=== PATIENT | female | born 1935 | race Caucasian/White ===

== ENCOUNTER 2022-06-17 11:34 | Outpatient (CLI) | payer MEDICARE, BC, SELFPAY ==
[2022-06-17 13:00] LABS: Cholesterol* 174 mg/dL (90-199); HDL Cholesterol* 40 mg/dL (>=50); LDL Cholesterol Calculated 88 mg/dL (<100); Triglycerides* 232 mg/dL (40-149)
== END 2022-06-17 11:35 | disposition home or self-care (01) ==
LOC: NFLDREF 11:34
PROVIDERS: PCP Internal Medicine; Visit Provider Internal Medicine
DX: I10 Essential (primary) hypertension (principal); E78.5 Hyperlipidemia, unspecified; E87.1 Hypo-osmolality and hyponatremia
CPT/HCPCS: 80061

== ENCOUNTER 2022-08-02 13:36 | Outpatient (CLI) | payer MEDICARE, BC, SELFPAY ==
[2022-08-02 15:59] LABS: Chloride* 95 mmol/L (96-114); Potassium* 4.8 mmol/L (3.6-5.1); Sodium* 135 mmol/L (135-149)
[2022-08-02 16:02] LABS: Blood Urea Nitrogen* 31 mg/dL (7-30); Calcium* 10.1 mg/dL (8.4-10.6); Carbon Dioxide* 26 mmol/L (20-32); Creatinine* 0.8 mg/dL (0.5-1.5); Estimated Glomerular Filt Rate 72 ml/min; Glucose* 112 mg/dL (60-115)
== END 2022-08-02 13:37 | disposition home or self-care (01) ==
LOC: NFLDREF 13:36
PROVIDERS: PCP Internal Medicine; Visit Provider Internal Medicine
DX: Z00.00 Encounter for general adult medical examination without abnormal findings (principal); I10 Essential (primary) hypertension
CPT/HCPCS: 80048

== ENCOUNTER 2022-08-25 10:34 | Outpatient (CLI) | payer MEDICARE, BC, SELFPAY ==
--- OUTSIDE RECORDS SUMMARY | 2022-08-25 10:38 | XMS_ITS | Clinical Summary ---
:1935 Author Organization [employer] [facility] [place] [address] Care Team Providers Name Role Phone Dhaval Lopez DPM Unavailable Wander Ashton MD Unavailable Dragan Colbert MD Unavailable Wander Ashton MD Unavailable Dhaval Lopez DPM Unavailable Marcela Benoit MD Primary Care Provider Allergies Active Allergy Reactions Severity Noted Date Comments Droperidol *Unknown 05/29/2019 Medications Medication Sig Dispensed Refills Start End Date Status Date calcium Take 1 tablet by 0 Act darren carbonate-vitamin D3, mouth once daily. 500 mg-400 units, (OYSTER SHELL CALCIUM-VIT D3) tablet fish oil-omega-3 fatty Take 1 capsule by 0 Active acids (FISH OIL) mouth once daily. 1,200-360 mg cap ascorbic acid, vitamin Take 500 mg by 0 Active C, (VITAMIN C) 500 mg mouth once daily. tablet polyethylene glycoL Take 17 g by 0 Active (MIRALAX) 17 gram/dose mouth. 7 powderIndications: Chronic constipation acetaminophen (TYLENOL Take 2 tablets by 0 Active EXTRA STRGTH) 500 mg mouth every 4 9 tablet hours if needed. Max acetaminophen dose: 4000mg in 24 hrs. loratadine (CLARITIN) 10 Take 1 tablet by 0 10/08/20 1 Active mg tabletIndications: mouth once daily. 9 Chronic serous otitis media of right ear B-D 3CC LUER-HEBERT SYR 0 Active 25GX5/8 3 mL 25 x 5/8 0 lisinopriL (PRINIVIL; TAKE 1 TABLET BY 90 tablet 1 Active ZESTRIL) 20 mg MOUTH ONCE DAILY. 1 tabletIndications: Hypertension aspirin (ECOTRIN) 81 mg Take 1 Tablet (81 0 04/09/20 2 Active enteric coated mg) by mouth once 1 tabletIndications: daily with a meal. Arterial ischemic stroke, vertebrobasilar, thalamic, acute, right (HC) clopidogreL (PLAVIX) 75 Take 1 Tablet (75 90 Tablet 3 04/09/20 2 Active mg tabletIndications: mg) by mouth every 1 Arterial ischemic morning. stroke, vertebrobasilar, thalamic, acute, right (HC) pravastatin (PRAVACHOL) TAKE ONE TABLET BY 60 Tablet 0 02 Active 20 mg tabletIndications: MOUTH AT BEDTIME 1 Mixed hyperlipidemia omeprazole (PRILOSEC) 20 TAKE 1 CAPSULE BY 90 Capsule 2 Active mg Delayed-Release MOUTH ONCE DAILY 2 capsuleIndications: BEFORE A MEAL Gastroesophageal reflux disease without esophagitis, Acute gastric ulcer with hemorrhage cyanocobalamin (VITAMIN INJECT 1 ML 3 mL 2 Active B12) 1,000 mcg/mL INTRAMUSCULAR 2 injectionIndications: EVERY 4 WEEKS. Vitamin B12 deficiency amLODIPine (NORVASC) 5 TAKE ONE TABLET BY 90 Tablet 2 12/01/19 2 Active mg tabletIndications: MOUTH ONCE DAILY 2 HTN (hypertension) hydroCHLOROthiazide TAKE 1 TABLET BY 30 Tablet 0 Active (HCTZ) 25 mg MOUTH ONCE DAILY. 2 tabletIndications: Hypertension Active Problems Problem Noted Date Nonrheumatic mitral valve regurgitation 04/09/2021 Arterial ischemic stroke, vertebrobasilar, thalamic, a cute, right 11/16/2020 Melanoma of left upper arm 06/11/2019 Melanoma in situ of face 06/11/2019 Squamous cell carcinoma 05/29/2019 Overview: Scalp lesion removed 02/2018 Primary osteoarthritis of right knee 02/22/2017 Constipation 04/01/2016 Post herpetic neuralgia 02/12/2016 Primary osteoarthritis of left knee 02/12/2016 Gastric ulcer, acute 06/19/2015 Overview: EGD 05/2015 gastric ulcer, repeat EGD in 4 months EGD 10/2015 healed ulcer Lumbar spinal stenosis 03/20/2015 DDD (degenerative disc disease), lumbar 10/25/2014 Sacroiliitis 10/25/2014 Vitamin B12 deficiency 06/21/2013 GERD (gastroesophageal reflux disease) 03/16/2013 Senile osteoporosis 01/13/2012 Paresthesias 04/07/2010 Carpal tunnel syndrome 02/12/2010 Personal history of colonic polyps 01/23/2010 Overview: Colonoscopy 01/2010 diverticulosis repeat in 5 years Colonoscopy 05/2015 diverticulosis, no fo llow up needed Cervical Radiculopathy 01/16/2010 Degeneration of cervical intervertebral disc 0 Iron deficiency anemia 01/02/2010 Unspecified transient cerebral ischemia 06/21/2000 Mixed hyperlipidemia Unspecified menopausal and postmenopausal disorder Essential hypertension Diverticulitis of colon (without mention of hemorrhage ) Obesity, Class II, BMI 35-39.9, with comorbidity Resolved Problems Problem Noted Date Resolved Date Low back pain radiating to left leg 10/23/200902/21 Overview: 2009: MRI: DDD, and Multilevel central c anal stenosis, greatest at L3-L4 where moderate canal stenosis. DENISSE: October 2009: L 4-5 Transforaminal , great improvement in left leg pain/symptoms. DENISSE: April 2010: left L4-5 Transforaminal . DENISSE: March 2011: left L4-5 Transforaminal. Osteopenia 01/01/2009 01/13/2012 Encounters Date Type Specialty Care Team Description 05/27/2022 Refill Pedro Luis Orellana MD Re fill Request (Hydrochlorothi azide, Clopidogrel) from Last 3 Months Immunizations Name Administration Dates Next Due COVID-19 vaccine (AskU 01/20/2021, 12/30/2020 30mcg/0.3mL) PFMDV Influenza, High-dose Inactivated 09/05/2019, 09/01/2016, , 08/28/2014 Influenza, High-dose Quadrivalent 09/10/2020 Inactivated Influenza, IIV3 (Age >=3 years) 08/13/2013, 08/22/2012, 07/22, 08/07/2010, 08/21/2009, 09/24/2008, 09/27/2007 Influenza, Inactivated IIV3 (Age 65+ 09/22/2018, 09/21/2017 Years) Preserv Free Pneumococcal Poly,23-Valent 09/24/2008 (Pneumovax) Pneumococcal conj 13-Valent (Prevnar 03/11/2015 13) Td (Age >=7 Years) 04/24/1998 Td, Preservative Free (age >= 7 02/13/2008 Years) Tdap 06/20/2012 Zoster (Shingrix-RZV, recombinant) 03/23/2019, 02/21/2019, 0 12/15/2018 Zoster (Zostavax-ZVL, live) 11/19/2008 Family History Medical History Relation Name Comments Cancer-breast Daughter Heart Disease Father [place] d 66 yo Cancer Mother pancreatic d 76 yo Diabetes Mother Hypertension Mother Good Health Sister 1 Good Health Sister 2 Relation Name Status Comments Daughter Father Mother Sister 1 Sister 2 Social History Tobacco Use Types Packs/Day Years Used Date Never Smoker Smokeless Tobacco: Never Used Tobacco Cessation: Counseling Given: Yes Alcohol Use Standard Drinks/Week Comments No 0 (1 standard drink = 0.6 oz pure alcoho l) Sex Assigned at Date Recorded Not on file Obstetrics History Para Term AB IAB SAB Ectopic Multiple Living Live Births 3 3 3 0 0 0 0 0 3 Date Outcome GA Total Labor/2nd/3rd Weight Sex Delivery Anes PTL Gabriela A 1 A5 Name Clin Labor Term Term Term Comments x3 Last Filed Vital Signs Vital Sign Reading Time Taken Comments Blood Pressure 134/70 04/09/2021 3:31 PM CDT Pulse 84 04/09/2021 3:19 PM CDT Temperature 36.6 ??C (97.9 ??F) 01/01/2020 6:02 PM 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 Respiratory Rate 20 12/12/2019 11:18 AM 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 Oxygen Saturation 99% 04/09/2021 3:19 PM CDT Inhaled Oxygen Concentration - - Weight 77.7 kg (171 lb 3.2 oz) 04/09/2021 3:19 PM CDT Height 151.1 cm (4' 11.5) 02/03/2021 1:05 PM CDT Body Mass Index 34 02/03/2021 1:05 PM CDT Plan of Treatment Health Maintenance Due Date Last Done Comments COVID-19 vaccine series (3 - 06/22/2021 01/20/2021, 021 Booster for Pfizer series) BMI (ht and wt on same day) for 02/03/2022 02/03/2021, 09/21, age 18+ 05/29/2019, Additional history exists Depression screening for age 12+ 02/03/2022 02/03/2021, 03/2021, 06/18/2020, Additional history exists Medicare Wellness for age 65+ 02/03/2022 02/03/2021, 2018, 05/18/2018, Additional history exists Tetanus booster 06/20/2022 06/20/2012, 02/13/2008, 04/24/1998 Influenza for age 65+ 07/22/2022 09/10/2020, 09/05/2019, 09/22/2018, Additional history exists DEXA/DXA scan for age 65+ Completed 01/06/2012, 01/02/2009 Tdap Completed 06/20/2012 Pneumococcal series for age 65+ Completed 03/11/2015, 02/2008 Zoster (shingles) series for age Completed 03/23/2019, 01/2019, 50+ 12/15/2018, Additional history exists Medical Devices Implanted Type Area Machining Associate Device Shelf Model / Identifier Expiration Serial / Date Lot Insert Knee Sz4 9mm Triathloncruc Ret X3 - [id number] Left: Evans 5530-[id number]# / Implanted: Qty: 1 on 02/27/2016 by Wander Gibson MD at [facility] [employer] / [id number] Fem Rt Sz3 Triathlon Cruc Ret Co Cr - [id number] Right: S samuel 11/30/2021 5510-F-[id number] / Implanted: Qty: 1 on 03/04/2017 by Wander Gibson MD at [facility] [employer] / [id number] Results Not on filefrom Last 3 Months Insurance Payer Benefit Plan / Subscriber ID Effective Dates Phone Addre ss Type Group MEDICARE PART B MEDICARE PART B [id number] 2000-Prese ATTN: CLAIMS - HB USE ONLY HB ONLY nt [address] [place] [address] MEDICARE PART A MEDICARE PART A [id number] 2000-Prese ATTN: CLAIMS - HB USE ONLY HB ONLY nt [address] [place] [address] MEDICARE - PB MEDICARE PB [id number] 2010-Prese ATTN : CLAIMS USE ONLY ONLY nt [address] [place] [address] BLUE CROSS BLUE CROSS OF [id number] 2016-Presen [address] [facility] [place] [address] ([address]) [place] [address] Tonja Chapman Personal/Family Self [address]) [place] [address] Advance Directives Latest Code Status on File Code Status Date Activated Date Inactivated Comments Full Code 03/04/2017 3:26 PM 03/07/2017 3:57 PM Full Code 03/04/2017 7:48 AM 03/04/2017 3:25 PM Full Code 02/27/2016 1:44 PM 03/01/2016 2:03 PM Full Code 02/27/2016 6:44 AM 02/27/2016 1:44 PM Care Teams Front End Assistant Relationship Specialty Start Date End Date Marcela Benoit MD PCP - General Internal Medicine 06/01/221999 [place] [address] Dhaval Lopez DPM PODIATRY Podiatry 01/06/12 Wander Ashton MD Sports Medicine 01/06/12 [address] [place] [address] Dragan Colbert MD Family Practice 01/06/12 Wander Ashton MD Sports Medicine 03/16/[address] [place] [id number] Dhaval Lopez DPM Podiatry 03/16/13
--- OUTSIDE RECORDS SUMMARY | 2022-08-25 10:38 | XMS_ITS ---
:1935 Author Care Team Providers Name Role Phone Emily Henning Primary Care Provider Unavailable Allergies None recorded. Medications Name Status Start Date Stop Date ? ? amlodipine 5 mg tablet Active ? Not avail able TAKE ONE TABLET BY MOUTH ONCE DAILY amoxicillin 500 mg capsule Active ? Not a vailable TAKE FOUR CAPSULES BY MOUTH 1 HOUR PRIOR TO PROCEDURE atorvastatin 20 mg tablet Active ? Not av ailable TAKE ONE TABLET BY MOUTH (20MG) AT BEDTIME BD Luer-Codey Syringe 3 mL 25 x 5/8 Active ? Not available USE TO INJECT CYANOCOBALAMIN clopidogrel 75 mg tablet Active ? Not leif ilable TAKE ONE TABLET BY MOUTH EVERY MORNING cyanocobalamin (vit B-12) 1,000 mcg/mL injection solution Active ? Not available INJECT 1 ML INTRAMUSCULAR EVERY 4 WEEKS. hydrochlorothiazide 25 mg tablet Active ? Not available TAKE 1 TABLET BY MOUTH ONCE DAILY. lisinopril 20 mg tablet Active ? Not avai lable TAKE 1 TABLET BY MOUTH ONCE DAILY. lisinopril 40 mg tablet Active ? Not avai lable TAKE 1 TABLET BY MOUTH ONCE DAILY. omeprazole 20 mg capsule,delayed release Active ? Not available TAKE 1 CAPSULE BY MOUTH ONCE DAILY BEFORE A MEAL pravastatin 20 mg tablet Active ? Not leif ilable TAKE 1 AND 1/2 TABLETS (30MG) BY MOUTH AT BEDTIME Problems None recorded. Procedures None recorded. Results Lab Results Date Name Specimen Result Interpretation Description Value Range Status Address ? 08/18/2021 Pathology, Skin ? No observation ? ? ? [facility] recorded. Laborat ory: [address], [place] Past Encounters 10/05/2021 Basal Cell Carcinoma of Nose Emily Henning MD: [address], [place] [address], Ph. Social History None recorded. Vaccine List None recorded. Plan of Care Reminders Provider Appointments None recorded. ? ? Lab None recorded. ? ? Referral None recorded. ? ? Procedures None recorded. ? ? Surgeries None recorded. ? ? Imaging None recorded. ? ? Vitals None recorded.
--- NOTE | 2022-08-25 10:45 | CRLHL7_ITS ---
For Patients: As a result of the Cures Act, medical imaging exams and procedure reports are released immediately into your electronic medical record. You may view this report before your referring provider. If you have questions, please contact your health care provider. BILATERAL DIAGNOSTIC MAMMOGRAM WITH COMPUTER-AIDED DETECTION AND TOMOSYNTHESIS RIGHT BREAST ULTRASOUND CLINICAL HISTORY: RIGHT breast fullness and thickening. COMPARISON: Mammograms 08/13/2013. TECHNIQUE: Digital technique with computer-aided detection and tomosynthesis was used. RIGHT breast ultrasound performed. BREAST COMPOSITION: There are scattered areas of fibroglandular density FINDINGS: No suspicious mammographic findings. Ultrasound over the RIGHT breast from 1 o`clock to 12 o`clock position demonstrates no suspicious findings. IMPRESSION: No mammographic or sonographic findings for malignancy. Breast surgical consultation recommended. BI-RADS Category 2: Benign A lay language report of this examination will be provided to the patient. Reema Kramer M.D. Diagnostic/Breast Radiologist [email or web address] USHA/Dictated by: Reema Kramer MD @ 08/25/2022 11:53:00 AM (Electronically Signed)
--- NOTE | 2022-08-25 11:15 | CRLHL7_ITS ---
For Patients: As a result of the Century Cures Act, medical imaging exams and procedure reports are released immediately into your electronic medical record. You may view this report before your referring provider. If you have questions, please contact your health care provider. PLEASE SEE BILATERAL DIAGNOSTIC MAMMOGRAM OF SAME DAY. CRL:[email or web address] USHA/Dictated by: Reema Kramer MD @ 08/25/2022 11:50:00 AM (Electronically Signed)
== END 2022-08-25 10:35 | disposition home or self-care (01) ==
LOC: MAMMO 10:36
PROVIDERS: PCP Internal Medicine; Visit Provider Internal Medicine
DX: R23.4 Changes in skin texture (principal); N64.59 Other signs and symptoms in breast
CPT/HCPCS: 76642; 77066; G0279

== ENCOUNTER 2022-09-06 18:28 | Emergency (ER) | payer MEDICARE, BC, SELFPAY ==
--- NOTE | 2022-09-06 19:25 | CRLHL7_ITS ---
For Patients: As a result of the Century Cures Act, medical imaging exams and procedure reports are released immediately into your electronic medical record. You may view this report before your referring provider. If you have questions, please contact your health care provider. INDICATION: Stroke code. TECHNIQUE: Head CT without intravenous contrast. Coronal and sagittal formats. COMPARISON: Head CT 01/28/2022. FINDINGS: No intracranial hemorrhage, extra-axial collection, or evidence of acute cortical infarct. Persistent patchy hypoattenuation involving the periventricular and deep white matter, likely chronic small vessel ischemic changes. Chronic lacunar infarct involving the right thalamus. Unchanged rounded hypodensity involving the left inferior basal ganglia, favor prominent perivascular space over chronic lacunar infarct. Age-appropriate ventricles and sulci. No mass effect or midline shift. The cranium is intact. The paranasal sinuses and mastoid air cells are clear. IMPRESSION: 1. No acute intracranial findings. 2. Chronic small vessel ischemic disease. Dictated by Morgan Bradley MD @ 09/06/2022 7:59:31 PM Please note that all CT scans at this facility use dose modulation, iterative reconstruction, and/or weight-based dosing when appropriate to reduce radiation dose to as low as reasonably achievable. Dictated by: Morgan Bradley MD @ 09/06/2022 19:59:37 (Electronically Signed)
[2022-09-06 19:29] VITALS: BP 185/78; PULSE 85; RESP 16; TEMP 36.9; O2SAT 99; BMI 31.2
[2022-09-06 19:30] VITALS: O2SAT 99
--- OUTSIDE RECORDS SUMMARY | 2022-09-06 20:01 | XMS_ITS ---
[...] Carcinoma of Nose Emily Henning MD: [address], [place] [address], Ph. Social History None recorded. Vaccine List None recorded. Plan of Care Reminders Provider Appointments None recorded. ? ? Lab None recorded. ? ? Referral None recorded. ? ? Procedures None recorded. ? ? Surgeries None recorded. ? ? Imaging None recorded. ? ? Vitals None recorded.
--- OUTSIDE RECORDS SUMMARY | 2022-09-06 20:01 | XMS_ITS | Clinical Summary ---
:1935 Author Organization [employer] [facility] [place] [address] Care Team Providers Name Role Phone Dhaval [...] 2011: left L4-5 Transforaminal. 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 Oxygen Saturation 99% 04/09/2021 3:19 PM CDT Inhaled Oxygen Concentration - - Weight 77.7 kg (171 lb 3.2 oz) 04/09/2021 3:19 PM CDT Height 151.1 cm (4' 11.5) 02/03/2021 1:05 PM CDT Body Mass Index 34 02/03/2021 1:05 PM CDT Plan of Treatment Health Maintenance Due Date Last Done Comments COVID-19 vaccine series (3 - 03/17/2021 01/20/2021, 021 Booster for Pfizer series) BMI [...] history exists Medical Devices Implanted Type Area Kier Hand Device Shelf Model / Identifier Expiration Serial / Date Lot Insert Knee Sz4 9mm Triathloncruc Ret X3 - [id number] Left: Hebert 5530-[id number]# / Implanted: Qty: 1 on 02/27/2016 by Wander Gibson MD at [facility] [employer] / [id number] Fem Rt Sz3 Triathlon Cruc Ret Co Cr - [id number] Right: Yuval baker 11/30/2021 5510-F-[id number] / Implanted: Qty: 1 on 03/04/2017 by Wander Gibson MD at [facility] [employer] / [id number] Results Not on filefrom Last 3 Months Insurance Payer Benefit Plan / Subscriber ID Effective Dates Phone Addre ss Type Group MEDICARE PART B MEDICARE PART B [id number] 2000-Prese ATTN: CLAIMS - HB USE ONLY HB ONLY nt [address] [facility] [address] MEDICARE PART A MEDICARE PART A [id number] 2000-Prese ATTN: CLAIMS - HB USE ONLY HB ONLY nt [address] [place] [address] MEDICARE - PB MEDICARE PB [id number] 2010-Prese ATTN : CLAIMS USE ONLY ONLY nt [address] [place] [address] BLUE CROSS BLUE CROSS OF [id number] 2016-Presen [address] [place] [address]) [place] [id number] Tonja Chapman Personal/Family Self [address]) [place] [address] Advance Directives Latest Code Status on File Code Status Date Activated Date Inactivated Comments Full Code 03/04/2017 3:26 PM 03/07/2017 3:57 PM Full Code 03/04/2017 7:48 AM 03/04/2017 3:25 PM Full Code 02/27/2016 1:44 PM 03/01/2016 2:03 PM Full Code 02/27/2016 6:44 AM 02/27/2016 1:44 PM Care Teams 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
--- NOTE | 2022-09-06 20:07 | ED.GENADULT ---
HPI - General Adult General Date Seen: 09/06/22 Chief complaint: Neuro Symptoms/Altered Deficit Stated complaint: Possible stroke symptoms Time Seen by Provider: 09/06/22 19:22 Source: patient and family Mode of arrival: ambulatory Limitations: no limitations History of Present Illness HPI narrative: Patient is a delightful 86-year-old female who presents here with her daughter Neli, who is a pharmacist here. Since she got up this morning at approximately 8:00 a.m. she has noted some left-sided feeling of a possible headache. Stop short of calling it a headache just says it is a feeling on the left side of her head. She does not have any nausea with this there is no increased weakness, over her baseline left upper extremity weakness. She does have a history of a previous CVA, and I think this is what causes her anxiety and she is in agreement. She denies any chest pain shortness of breath nausea vomiting visual symptoms with increased weakness numbness or any other symptoms. Her balance has been good. She comes in to be seen for this issue. Related Data Home Medications Medication Instructions Recorded Confirmed acetaminophen 500 mg tablet 500 mg PO Q4-6H PRN 08/02/22 09/01/22 cyanocobalamin (vitamin B-12) 1,000 mcg IM Q4W 08/02/22 09/01/22 1,000 mcg/mL injection solution loratadine 10 mg tablet 10 mg PO DAILY 08/02/22 09/01/22 polyethylene glycol 3350 17 17 g PO DAILY 08/02/22 09/01/22 gram/dose oral powder Previous Rx's Medication Instructions Recorded amlodipine 5 mg tablet 5 mg PO DAILY #90 tabs 08/02/22 atorvastatin 20 mg tablet 20 mg PO .Bedtime #90 tabs 08/02/22 clopidogrel 75 mg tablet 75 mg PO QDAY #90 tabs 08/02/22 hydrochlorothiazide 25 mg tablet 25 mg PO QDAY #90 tabs 08/02/22 lisinopril 40 mg tablet 40 mg PO QDAY #90 tabs 08/02/22 omeprazole 20 mg tablet,delayed 20 mg PO DAILY #90 tabs 08/02/22 release Allergies Allergy/AdvReac Type Severity Reaction Status Date / Time No Known Drug Allergies Allergy Verified 09/01/22 09:50 Review of Systems Status of ROS: Reports: 10 or more systems reviewed and unremarkable except as noted in History and below [facility] Surgical History History of basal cell carcinoma (BCC) of skin History of bilateral cataract extraction History of carpal tunnel release of both wrists History of malignant melanoma of skin History of total bilateral knee replacement Social History Narrative: Patient lives by herself in a farm house. 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 Walks with a walker. Smoking Status: Never smoker Do you use any of these nicotine containing products: None Second hand tobacco smoke exposure: No How often do you have a drink containing alcohol: never How often do you have six or more drinks on one occasion: Never AUDIT-C Alcohol total score: 0 Non-prescribed substance use: denies use Little interest or pleasure in doing things: not at all Feeling down, depressed, or hopeless: not at all service: No Exam Narrative: Exam Narrative: Patient is seen in room 3 in no apparent distress, she is alert oriented speaking to me normally, she is able to whistle in cranial nerves 3-12 are normal, her pupils are equal round reactive to light there is no nystagmus, visual dobson are normal on testing her TMs are normal bilaterally her neck is supple her is no lymphadenopathy anterior posterior chains, JVP is flat carotid upstrokes are normal, chest is clear bilaterally with no wheezing crackles noted easy respirations, heart sounds no clicks murmurs or gallops S1-S2 are normal, abdomen is soft there is no tenderness to palpation, no organomegaly is noted, his extremities show normal movement of the extremities with normal power upper lower extremities, no evidence of any weakness, and she is able to ambulate normally. Her NIH Screen is 0 Const: Vital Signs, click to edit/add: Vital Signs - 24 hr 09/06/22 19:29 Temperature 98.5 F Pulse Rate [Right Pulse Oximeter] 85 Respiratory Rate 16 Blood Pressure [Ri ght Upper Arm] 185/78 H Pulse Oximetry 99 Oxygen Delivery Me thod Room Air Documenting provider has reviewed patient's vital signs: yes Course Course Hospital Course: Patient is remained stable here I reviewed her head CT with her, and there is no acute findings, if the labs are all normal then I think we can discharge her home, and they family is comfortable with this plan. There is an element of anxiety here, given what is happened recently. Vital Signs Vital signs: Initial Vital Signs Temperature 98.5 F 09/06/22 19:29 Temperature Source Temporal Artery Scan 09/06/22 19:29 Pulse Rate 85 09/06/22 19:29 Pulse Rhythm 09/06/22 19:29 Pulse Strength 3+ Normal 09/06/22 19:29 Respiratory Rate 16 09/06/22 19:29 Blood Pressure 185/78 H 09/06/22 19:29 Blood Pressure Mean 113 09/06/22 19:29 Blood Pressure Position Supine 09/06/22 19:29 Pulse Oximetry 99 09/06/22 19:29 Oxygen Delivery Method 09/06/22 19:29 Vital Signs Temperature 98.5 F 09/06/22 19:29 Pulse Rate 85 09/06/22 19:29 Respiratory Rate 16 09/06/22 19:29 Blood Pressure 185/78 H 09/06/22 19:29 Pulse Oximetry 99 09/06/22 19:29 Oxygen Delivery Method 09/06/22 19:29 Temperature 98.5 F 09/06/22 19:29 Pulse Rate 85 09/06/22 19:29 Respiratory Rate 16 09/06/22 19:29 Blood Pressure 185/78 H 09/06/22 19:29 Pulse Oximetry 99 09/06/22 19:29 Oxygen Delivery Method 09/06/22 19:29 Medical Decision Making MDM Narrative Medical decision making narrative: Life-threatening differential diagnosis considered include stroke, coronary artery disease, pneumonia, and heart failure. Other differential diagnosis include but are not limited to electrolyte imbalances, anemia, medication reactions, and urinary tract infection I think this is likely related to of a headache with some mild anxiety we will do a CT of her head and do some labs however to reassure herself. I am reassured by NIH Screen of 0, and the fact that this is been going on for 12 hours she is not a candidate for any intervention. Medical Records Medical records reviewed: Yes I reviewed the patient's medical records Lab Data Lab results reviewed: Yes I reviewed the patient's lab results Labs: Lab Results 09/06/22 09/06/22 09/06/22 Range/Units 19:46 20:05 20:05 WBC 7.86 (4.50-11.00) K/uL RBC 4.05 (4.00-5.20) m/uL Hgb 12.4 (12.0-16.0) gm/dL Hct 37.4 (33.0-51.0) % MCV 92 (80-100) fL MCH 31 (26-34) pg MCHC 33 (32-36) gm/dL Plt Count 234 (140-440) K/uL Neut % (Auto) 71.3 (42.0-72.0) % Lymph % (Auto) 18.2 L (20-44) % [place] % (Auto) 9.4 (0.0-11.0) % Eos % (Auto) 0.4 (0.0-7.0) % Baso % (Auto) 0.1 (0.0-3.0) % Neut # (Auto) 5.60 (1.7-7.0) K/uL Lymph # (Auto) 1.40 (0.90-2.90) K/uL [place] # (Auto) 0.70 (0.00-0.90) K/UL Eos # (Auto) 0.00 (0.00-0.50) K/uL Baso # (Auto) 0.00 (0.00-0.30) K/uL Abs Immat Gran (auto) 0.00 (0.00-0.30) K/uL Imm/Tot Granulo (auto) 0.6 % Sodium 134 L (135-149) mmol/L Potassium 4.5 (3.6-5.1) mmol/L Chloride 99 (96-114) mmol/L Carbon Dioxide 27 (20-32) mmol/L BUN 23 (7-30) mg/dL Creatinine 0.7 (0.5-1.5) mg/dL Estimated Creat Clear 29.01 Estimated GFR 84 ml/min Glucose 111 (60-115) mg/dL Calcium 9.6 (8.4-10.6) mg/dL C-Reactive Protein < 0.5 L (0.5-1.0) mg/dL SARS-CoV-2 (PCR) Negative SARS-CoV-2 (Negative) Influenza Type A (PCR) Negative PCR FLU A (Negative) Influenza Type B (PCR) Negative PCR FLU B (Negative) RSV (PCR) Negative PCR RSV (Negative) Imaging Data CT scan - head: Attestation: I have reviewed the pertinent imaging results. Radiologist's impression: Patient: JOSE GUADALUPE TERRELL Facility:?[facility] Patient ID:?[id number] Site Patient ID:?[id number]. Site :?[id number] Study:?CT Head STROKE PROTOCOL-09/06/2022 7:35:05 PM Ordering Physician:Adryan Quintero Final Report: INDICATION: Stroke code. TECHNIQUE: Head CT without intravenous contrast. Coronal and sagittal formats. COMPARISON: Head CT 01/28/2022. FINDINGS: No intracranial hemorrhage, extra-axial collection, or evidence of acute cortical infarct. Persistent patchy hypoattenuation involving the periventricular and deep white matter, likely chronic small vessel ischemic changes. Chronic lacunar infarct involving the right thalamus. Unchanged rounded hypodensity involving the left inferior basal ganglia, favor prominent perivascular space over chronic lacunar infarct. Age-appropriate ventricles and sulci. No mass effect or midline shift. The cranium is intact. The paranasal sinuses and mastoid air cells are clear. IMPRESSION: 1. No acute intracranial findings. 2. Chronic small vessel ischemic disease. Dictated by Morgan Bradley MD @ 09/06/2022 7:59:31 PM Please note that all CT scans at this facility use dose modulation, iterative reconstruction, and/or weight-based dosing when appropriate to reduce radiation dose to as low as reasonably achievable. Dictated by: Morgan Bradley MD @ 09/06/2022 19:59:37 (Electronic Signature) Discharge Plan Discharge Clinical Impression: History of completed stroke, Anxiety, Headache Patient Disposition: Home w/ Parent or Adult Condition: Stable Instructions: Acute Headache (ED), Anxiety (ED), Stroke (DC) Additional Instructions: Reassurance given, would suggest going home rest, continue with her medications as directed, return here if signs and symptoms of worsening occur, Prescriptions: No Action loratadine 10 mg tablet 10 mg PO DAILY polyethylene glycol 3350 17 gram/dose powder 17 g PO DAILY acetaminophen 500 mg tablet 500 mg PO Q4-6H PRN cyanocobalamin (vitamin B-12) 1,000 mcg/mL solution 1,000 mcg IM Q4W atorvastatin 20 mg tablet 20 mg PO .Bedtime Qty: 90 3RF amlodipine 5 mg tablet 5 mg PO DAILY Qty: 90 3RF clopidogrel 75 mg tablet 75 mg PO QDAY Qty: 90 3RF hydrochlorothiazide 25 mg tablet 25 mg PO QDAY Qty: 90 3RF lisinopril 40 mg tablet 40 mg PO QDAY Qty: 90 3RF omeprazole 20 mg tablet,delayed release (DR/EC) 20 mg PO DAILY Qty: 90 3RF Follow Up/Referrals: Marcela Benoit MD [Primary Care Provider] - Stand Alone Forms: [employer] Info Instructions
[2022-09-06 20:30] VITALS: BP 141/70; PULSE 81; O2SAT 97
[2022-09-06 20:43] LABS: Chloride* 99 mmol/L (96-114); Potassium* 4.5 mmol/L (3.6-5.1); Sodium* 134 mmol/L (135-149)
[2022-09-06 20:45] LABS: Eosinophils Percent Auto 0.4 % (0.0-7.0); Hematocrit 37.4 % (33.0-51.0); Hemoglobin* 12.4 gm/dL (12.0-16.0); Lymphocytes Percent Auto 18.2 % (20-44); Mean Corpuscular HGB Conc 33 gm/dL (32-36); Mean Corpuscular Hemoglobin 31 pg (26-34); Mean Corpuscular Volume 92 fL (80-100); Monocytes Percent Auto 9.4 % (0.0-11.0); Neutrophils Percent Auto 71.3 % (42.0-72.0); Platelet Count* 234 K/uL (140-440); Red Blood Count 4.05 m/uL (4.00-5.20); White Blood Count* 7.86 K/uL (4.50-11.00)
[2022-09-06 20:46] LABS: Basophils Percent Auto 0.1 % (0.0-3.0); Creatinine* 0.7 mg/dL (0.5-1.5); Est. Creatinine Clearance* 29.01; Estimated Glomerular Filt Rate 84 ml/min; Immature Granulocytes Pct Auto 0.6 %; Slide Review Reflex No
[2022-09-06 20:47] LABS: Blood Urea Nitrogen* 23 mg/dL (7-30); Calcium* 9.6 mg/dL (8.4-10.6); Carbon Dioxide* 27 mmol/L (20-32); Glucose* 111 mg/dL (60-115)
[2022-09-06 20:48] LABS: PCR FLU A Negative PCR FLU A (Negative); PCR FLU B Negative PCR FLU B (Negative); PCR RSV Negative PCR RSV (Negative)
[2022-09-06 20:50] LABS: SARS PCR* Negative SARS-CoV-2 (Negative)
[2022-09-06 20:50] LABS: C Reactive Protein* < 0.5 mg/dL (0.5-1.0)
[2022-09-06 21:00] VITALS: BP 134/69; PULSE 82; RESP 13; O2SAT 97
[2022-09-06 21:11] VITALS: BP 149/71; PULSE 82; RESP 13; O2SAT 97
--- NOTE | 2022-09-06 21:35 | ED.NURSE ---
was able to ambulate to the br to try to get ua. did well with walker.
--- NOTE | 2022-09-06 21:43 | ED.NURSE ---
was able to void a small amt. wants to go home.
[2022-09-06 21:59] LABS: Color Urine Yellow (Yellow)
[2022-09-06 22:00] LABS: Appearance Urine Clear (Clear); Bilirubin Urine Negative (Negative); Blood Urine Trace-intact (Negative); Glucose Urine Negative (Negative); Ketones Urine Negative (Negative); Leukocyte Esterase Urine 1+ (Negative); Nitrite Urine Negative (Negative); Protein Urine Negative (Negative); RBC Urine 0-2 (0-2); Urobilinogen Urine 0.2 (0.2-1.0); WBC Urine 0-2 (0-5)
[2022-09-06 22:26] VITALS: BP 149/71; PULSE 82; RESP 13; TEMP 36.9
== END 2022-09-06 22:10 | disposition home or self-care (01) ==
PROVIDERS: Emergency Provider Family Medicine; PCP Internal Medicine
DX: R51.9 Headache, unspecified (principal); F41.9 Anxiety disorder, unspecified; Z20.822 Contact with and (suspected) exposure to COVID-19; Z86.73 Personal history of transient ischemic attack (TIA), and cerebral infarction without residual deficits
CPT/HCPCS: 36415; 70450; 80048; 81001; 85025; 86140; 87502; 87634; 87635; 93005; 94761; 99284

== ENCOUNTER 2023-08-04 11:42 | Outpatient (CLI) | payer MEDICARE, BC, SELFPAY ==
--- OUTSIDE RECORDS SUMMARY | 2023-08-04 11:45 | XMS_ITS | Continuity of Care Document ---
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 Name Role Phone Unavailable Unavailable Unavailable Procedures Procedure Date Office[facility]outpatient visit,[facility] [facility] [place] Advance Directives Directive Yes / No Effective Date File Name No Information Encounters Encounter Description Practice Location Reason(s) For Visit Diagnoses Date Provider Providers Copied on Encounter [facility], [address] [place], [place] [address] [place] [address], [facility], tel:[phone] [employer] [facility] [place] No Information 201 0 No Information Office/outpat ient visit,new, mod [facility], [address] [place], [place] [address], [place], [facility], tel:[phone] [employer] [facility] [place] No Information 201 0 Panvica Jacoby. [facility], [address] [place] [address], [address], [place], [place], [id number], [place]. tel:[phone] Referring Provider: Pedro Luis Forte, [address], [address]. tel:[phone] Family History Family Member Type Diagnosis Age At Onset No Information Payers Payer name Insurance type Covered democrat ID Authoriza tion(s) Medicare [id number] [facility] [id number] Social History Type Description Quantity Date Captured Comments Sex Female Smoking Status No Information Chief Complaint And Reason For Visit No Information Reason For Referral Reason For Referral No Information History Of Present Illness Encounter Date Complaint History Of Prese nt Illness No Information Functional Status Date Functional Assessmen t No Information Instructions Date Instruction Additional Infor mation No Information Assessments Type Assessment Date No Information Patient Care Teams Name Effective Dates (start - stop) Status Members No Information
== END 2023-08-04 11:43 | disposition home or self-care (01) ==
PROVIDERS: PCP Internal Medicine; Visit Provider Internal Medicine
DX: I10 Essential (primary) hypertension (principal); E53.8 Deficiency of other specified B group vitamins; E78.5 Hyperlipidemia, unspecified
CPT/HCPCS: 80048; 80061

== ENCOUNTER 2023-08-31 15:15 | Outpatient (RCR) | payer MEDICARE, BC, SELFPAY ==
--- NOTE | 2023-07-21 15:16 | PT.OPEX ---
Please sign the attached outpatient physical therapy evaluation completed on 07/21/23. Thank you. PT [facility] [place] Outpatient Eval PT [facility] Outpatient Eval Start: 07/14/23 15:54 Freq: Status: Active Protocol: Document 07/21/23 07:25 TLQ (Rec: 07/21/23 11:03 TLQ [id number]) E-signed By Shsaha Edmondson DPT Physical Therapy Outpatient Evaluation Insurance Information Recert Due Date 10/19/23 Insurance Name Medicare B,Blue [employer] Medical Diagnosis Lesion of sciatic nerve, right lower limb G57.01 Piriformis syndrome of right side Treating Diagnosis Radiculopathy, lumbar M54.16 Pain in right leg M79.604 Muscle weakness M62.81 Referring MD Kayla Saldaña, [employer]READ [employer], [employer] Subjective Subjective Patient is here with her daughter Neli today. Has been having pain in her right upper thigh since the end of May. Went to urgent care on due to the pain, was prescribe Prednisone for 5 days which helped with her pain. No injury that initiated the pain, denies any similar pain in the past. Pain worsens towards the end of the day, especially if she has been moving a lot during the day. Painful to lift her leg when sitting but doesn't hurt to walk. Lifting her leg into the car can be painful. Is taking Tylenol during the day and an OTC Lidocaine patch at night. Has diagnosis of spinal stenosis, at the time of her urgent care visit she was provided with a referral to mobile security specialist at the end of July. Patient states her back does not bother her much , has received injections in the past which helped with pain that was present at the time. Denies sensations of numbness and tingling in her legs. Using a 4WW for ambulation. Lives alone in a house, daughter lives nearby and visits often. No stairs inside her home, has 2 steps to enter her home with a railing. Patient reports she does not have pain with stairs but daughter recalls patient has recently had pain with attempting to lift her leg to get into the shower. PMHx: spinal stenosis, stroke 2020 (takes Plavix), HTN, L/R TKA Pain Comments at best: 2/10 at worst: 6-7, sharp/ache location: anterior R hip/groin aggravating factors: hip flexion in sitting Current Work Status Retired Preferred Name Krystal Precautions Therapy Limitations/Systems Review Not Limited Objective Other/Pertinent Objective Hip ROM WFL BL Lower extremity strength Hip: flexion L 4+, R 4- pain abduction 5 B adduction 4- B internal rotation L 4+, R 4 external rotation L 4+, R 4- Knee: flexion L 4+, R 3+ extension 4+ B Ankle: dorsiflexion 5 B TTP: L3-5 paraspinals BL, R PSIS, R gluteals, R piriformis , R iliacus, R ASIS, R hip adductors Gait: use of 4WW, slow andrés , slow transitional movements 5xSTS: not addressed due to time constraints Stair navigation: not addressed due to time constraints Special tests: Slump test (-) for symptom reproduction (+) for hamstring tightness SLR (-) Quadrant test (-) Manual traction (+) improved symptoms Functional Test Performed & Score LEFS: administered on 07/21/23 score 20/80 (left item f blank) Assessment Assessment/Impression Patient is an 87-year-old female who presents to outpatient physical therapy to address right lower extremity pain of one month in duration . Pain is localized to ana- medial right thigh, pain increases with active hip flexion when patient is in a seated position. Patient has a history of spinal stenosis, symptoms may be stemming from L2-3 nerve irritation. The patient is scheduled for a consultation with a mobile security specialist in July to address her stenosis. Strength assessments today revealed weakness of the R hip flexors, adductors, and rotators. In addition to strength deficits, the patient was tender with palpation of R adductors, proximal hip flexors, and ASIS . Patient also had tenderness at R PSIS and gluteals, most tender posteriorly at R piriformis though patient denies radicular symptoms following sciatic distribution at this time. Patient uses a 4WW for ambulation, observed to have slow andrés during gait as well as during transitional movements and bed mobility. POC will focus on decreasing irritation to provide pain-relief and strength exercises to address muscle weakness observed today . Based on the above examination findings the patient is appropriate for skilled physical therapy interventions to reduce pain and meet the goals as outlined below. Primary Functional Limitations right leg pain, groin pain, hip flexion, car transfers Plan of Care Rehabilitation Potential Fair Physical Therapy Goals In 4-5 visits: - Subjective reports of pain will decrease from 7/10 to <4/ 10 to indicate positive response to physical therapy interventions. - Patient will adhere to HEP to progress strength and mobility interventions. In 8-10 visits: - LEFS score will improve to > 29/80 (MCID 9 points) to indicate functional improvements of RLE. - Patient will report ability to transition in/out of car with no more than 2/10 pain in her RLE. - R hip flexion strength will improve to 4+ in order for patient to step into/out of shower without difficulty. Treatment Plan/Direct Interventions Electrical Stimulation,Gait Training,Manual Therapy, Neuromuscular Re-ed,Self-Care/ Home Management,Therapeutic Activities,Therapeutic Exercises Frequency/Duration 1x/week for 8-10 visits Patient Will Be Discharged From Therapy Completion of LTG(s),Skills Plateau,Independent w/HEP, Independently Progressing Evaluation Billing Untimed Code Treatment Minutes 40 Complexity Low Certification Information Initial Certification Date 07/21/23 Ending Certification Date 10/19/23 Provider Signature Shows Agreement With POC & Medical Necessity Physician Signature & Date Requested Please Sign/Date Here Physician Comment/Change : Physician NPI Number #
== END 2023-12-12 08:39 | disposition home or self-care (01) ==
PROVIDERS: PCP Internal Medicine; Visit Provider Nurse Practitioner Family
DX: M54.16 Radiculopathy, lumbar region (principal); Z51.89 Encounter for other specified aftercare
CPT/HCPCS: 97110; 97140; 97161; 97535

== ENCOUNTER 2023-11-07 13:00 | Outpatient (RCR) | payer MEDICARE, BC, SELFPAY | END 2024-01-30 09:47 | disposition home or self-care (01) | PROVIDERS: PCP Internal Medicine; Visit Provider Specialist | DX: M48.062 Spinal stenosis, lumbar region with neurogenic claudication (principal); M54.50 Low back pain, unspecified; M62.81 Muscle weakness (generalized); Z51.89 Encounter for other specified aftercare | CPT/HCPCS: 97110; 97161 ==

== ENCOUNTER 2023-11-15 13:30 | Emergency (ER) | payer MEDICARE, BC, SELFPAY ==
[2023-11-15 13:59] VITALS: BP 152/73; PULSE 83; RESP 18; TEMP 37.4; O2SAT 98; BMI 31.2
--- NOTE | 2023-11-15 14:45 | CRLHL7_ITS ---
For Patients: As a result of the Century Cures Act, medical imaging exams and procedure reports are released immediately into your electronic medical record. You may view this report before your referring provider. If you have questions, please contact your health care provider. Indication: Fall yesterday Technique: Volumetric multidetector CT images of the head were obtained without the administration of low osmolar intravenous contrast. Comparison: CT head September 06, 2022 Findings: There is no intra-axial or extra-axial fluid collection. There is no mass effect or midline shift. There is age-related cortical atrophy with mild sulcal widening and ex vacuo dilatation of the lateral ventricles. There are old lacunar changes of the basal ganglia. There are chronic small vessel disease changes in the subcortical and periventricular white matter without lost rivero-white differentiation. The orbits and their contents are grossly within normal limits. The bony calvarium is grossly intact. The paranasal sinuses are clear. The mastoid air cells are well aerated. Impression: Age related and remote ischemic changes of the brain without acute intracranial abnormality. Please note that all CT scans at this facility use dose modulation, iterative reconstruction, and/or weight-based dosing when appropriate to reduce radiation dose to as low as reasonably achievable. Dictated by Stu Gandhi MD @ 11/15/2023 3:58:57 PM (Electronically Signed)
--- NOTE | 2023-11-15 15:27 | ED.GENADULT ---
HPI - General Adult General Date Seen: 11/15/23 Chief complaint: Fall/Minor Trauma Stated complaint: Fell yesterday, needs CT Time Seen by Provider: 11/15/23 15:24 Source: patient and family Mode of arrival: ambulatory Limitations: no limitations History of Present Illness HPI narrative: Patient is an 88-year-old woman here with her daughter for evaluation after a fall yesterday morning. She went to put her weight on her walker and a break cable was apparently a defective allowing walker to slide forward. She fell forward and hit her left forehead and I on the walker. She has some bruising around her eye today. She denies visual complaints, pain, diplopia. There was no loss of consciousness. She does take Plavix and has had some shooting pains in the left side of her head. No neck pain. No vomiting. No other complaints. Related Data Home Medications Medication Instructions Recorded Confirmed acetaminophen 500 mg tablet 500 mg PO Q4-6H PRN 08/02/22 11/15/23 loratadine 10 mg tablet 10 mg PO DAILY 08/02/22 08/04/23 polyethylene glycol 3350 17 17 g PO DAILY 08/02/22 08/04/23 gram/dose oral powder vit C 250 mg-E 90 mg-zinc 40 1 tab PO DAILY 08/04/23 08/04/23 mg-copper 1 bu-cfndrv-alvemm chew tablet (PreserVision AREDS-2) Previous Rx's Medication Instructions Recorded cyanocobalamin (vitamin B-12) 1,000 mcg IM Q4W #30 mL 02/22/23 1,000 mcg/mL injection solution amlodipine 5 mg tablet 5 mg PO DAILY #90 tabs 08/04/23 atorvastatin 20 mg tablet 20 mg PO .Bedtime #90 tabs 08/04/23 clopidogrel 75 mg tablet 75 mg PO QDAY #90 tabs 08/04/23 hydrochlorothiazide 25 mg tablet 25 mg PO QDAY #90 tabs 08/04/23 lisinopril 40 mg tablet 40 mg PO QDAY #90 tabs 08/04/23 omeprazole 20 mg tablet,delayed 20 mg PO DAILY #90 tabs 08/04/23 release Allergies Allergy/AdvReac Type Severity Reaction Status Date / Time No Known Drug Allergies Allergy Verified 11/15/23 14:06 Review of Systems Status of ROS: Reports: 6 or more systems reviewed and unremarkable except as noted in History and below PFSH PFS Surgical History History of total bilateral knee replacement ?Z96.653 - Presence of artificial knee joint, bilateral (ICD-10) History of malignant melanoma of skin ?Z85.820 - Personal history of malignant melanoma of skin (ICD-10) History of carpal tunnel release of both wrists ?Z98.890 - Other specified postprocedural states (ICD-10) History of bilateral cataract extraction ?Z98.41 - Cataract extraction status, right eye (ICD-10) ?Z98.42 - Cataract extraction status, left eye (ICD-10) History of basal cell carcinoma (BCC) of skin ?Z85.828 - Personal history of other malignant neoplasm of skin (ICD-10) Social History Narrative: Patient lives by herself in a farm house. 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 Walks with a walker. What is your current living situation?: I presently have a place to live Problems where you live: no known problems In the past 12 months, utilities in danger of being shut off: no In past 12 months, lack of transportation kept you from medical appts, meetings, work, or getting things needed for daily living: no In the past 12 mos, have been you worried that your food would run out before you had money to buy more?: never true In the past 12 mos, the food you bought just didn't last and you didn't have money to buy more?: never true Smoking Status: Never smoker Do you use any of these nicotine containing products: None Second hand tobacco smoke exposure: No How often do you have a drink containing alcohol: never How often do you have six or more drinks on one occasion: Never AUDIT-C Alcohol total score: 0 Non-prescribed substance use: denies use How often does anyone, including family, friends and others, physically hurt you: never How often does anyone, including family, friends and others, insult or talk down to you: never How often does anyone, including family, friends and others, threaten you with harm: never How often does anyone, including family, friends and others, scream or curse at you: never Little interest or pleasure in doing things: not at all Feeling down, depressed, or hopeless: not at all service: No Exam Narrative: Exam Narrative: Vital signs as noted above. In general, an alert, nontoxic elderly woman. Conversant, pleasant. Head: Scant bruising on her left forehead he, some reddish bruising and swelling noticed around the left eye. Eyes: Pupils are equal reactive. Extraocular movements are full. Conjunctivae are normal. ENT: Mucous membranes are moist. No other facial trauma, no bony tenderness or deformity. Neck: Supple without lymphadenopathy. Nontender to palpation. Heart: Regular rate and rhythm. No murmur or rub. Lungs: Clear bilaterally. No increased work of breathing, crackles or wheezes. Neurologic: Patient is alert and oriented to person and place. Speech is fluent. Face is symmetric. Moves all extremities equally. Gait stable with walker. Affect: Normal. Skin: Warm and dry. Well perfused. Const: Vital Signs, click to edit/add: Vital Signs - 24 hr 11/15/23 13:59 Temperature 99.3 F Pulse Rate [Pulse Oximeter] 83 Respiratory Rate 18 Blood Pressure [Ri ght Upper Arm] 152/73 H Pulse Oximetry 98 Oxygen Delivery Me thod Room Air Documenting provider has reviewed patient's vital signs: yes Course Course ED Course: Patient had a CT scan of the head which by my review showed no acute findings. Read by Radiology is negative. She has facial injuries but nothing suggestive of facial fractures, no ocular injury or signs of entrapment. Recommend supportive care, Tylenol if needed, ice may be helpful. Gradual improvement expected over the next couple weeks. See primary care if needed. Vital Signs Vital signs: Initial Vital Signs Temperature 99.3 F 11/15/23 13:59 Temperature Source Temporal Artery Scan 11/15/23 13:59 Pulse Rate 83 11/15/23 13:59 Respiratory Rate 18 11/15/23 13:59 Blood Pressure 152/73 H 11/15/23 13:59 Blood Pressure Mean 99 11/15/23 13:59 Blood Pressure Position Sitting 11/15/23 13:59 Pulse Oximetry 98 11/15/23 13:59 Oxygen Delivery Method Room Air 11/15/23 13:59 Vital Signs Temperature 99.3 F 11/15/23 13:59 Pulse Rate 83 11/15/23 13:59 Respiratory Rate 18 11/15/23 13:59 Blood Pressure 152/73 H 11/15/23 13:59 Pulse Oximetry 98 11/15/23 13:59 Oxygen Delivery Method Room Air 11/15/23 13:59 Temperature 99.3 F 11/15/23 13:59 Pulse Rate 83 11/15/23 13:59 Respiratory Rate 18 11/15/23 13:59 Blood Pressure 152/73 H 11/15/23 13:59 Pulse Oximetry 98 11/15/23 13:59 Oxygen Delivery Method Room Air 11/15/23 13:59 Discharge Plan Discharge Clinical Impression: CHI (closed head injury), Contusion of face Patient Disposition: Home, Self-Care Condition: Stable Instructions: Head Injury (ED), Facial Contusion (ED) Prescriptions: No Action loratadine 10 mg tablet 10 mg PO DAILY polyethylene glycol 3350 17 gram/dose powder 17 g PO DAILY acetaminophen 500 mg tablet 500 mg PO Q4-6H PRN PreserVision AREDS-2 250-90-40-1 mg tablet,chewable 1 tab PO DAILY lisinopril 40 mg tablet 40 mg PO QDAY Qty: 90 3RF hydrochlorothiazide 25 mg tablet 25 mg PO QDAY Qty: 90 3RF clopidogrel 75 mg tablet 75 mg PO QDAY Qty: 90 3RF atorvastatin 20 mg tablet 20 mg PO .Bedtime Qty: 90 3RF amlodipine 5 mg tablet 5 mg PO DAILY Qty: 90 3RF omeprazole 20 mg tablet,delayed release (DR/EC) 20 mg PO DAILY Qty: 90 3RF cyanocobalamin (vitamin B-12) 1,000 mcg/mL solution 1,000 mcg IM Q4W Qty: 30 5RF Follow Up/Referrals: Marcela Benoit MD [Primary Care Provider] - Stand Alone [facility] Inst[facility]
--- OUTSIDE RECORDS SUMMARY | 2023-11-15 15:41 | XMS_ITS | Continuity of Care Document ---
Author Name Unknown Organization [facility] Address [address] [place] [address] Phone Care Team Providers Care Building Services Technician Name Role Phone Angel Shen MD Unavailable Unavailable Procedures Procedure Date Office/Outpatient Visit,[facility], [facility] 2022 Office/outpatient visit,[facility], [facility] 2009 Advance Directives Directive Yes / No Effective Date File Name No Information Encounters Encounter Description Practice Location Reason(s) For Visit Diagnoses Date Provider Providers Copied on Encounter Office/Outpat ient Visit,[facility], [facility], [address], [place], [place], [id number], tel:[phone] [facility] [place] Spinal stenosis, lumbosacral regionOther forms of scoliosis, site unspecifiedS pondylolysis , site unspecified 3 Hermelinda Ortiz. [facility] [place], [address], [address], [id number] , [place]. tel:[phone] Referring Provider: Angel Delgado, [facility] [place] [address], [address], [address] . tel:[phone] [facility], [address], [place], [place], [id number], [place] tel:[phone] [facility] Spinal stenosis, lumbosacral region Jul- 3 Hermelinda Ortiz. [facility], [address], [address], [place], [place], [id number] , [place]. tel:[phone] Office/outpat ient visit,new, mod Z [facility], [address], [place], [address], [place] tel:[phone] [facility] No Information 0 Fan Dozier. [facility], [address] [place] [address], [address], [place], [place], [id number] , [place]. tel:[phone] Referring Provider: Pedro Luis Forte, [address], [place], [address]. tel:[phone] Family History Family Member Type Diagnosis Age At Onset No Information Payers Payer name Insurance type Covered alliance party ID Authormichellea miri(s) Medicare MB [id number] [facility] [address] [facility] [id number] Social History Type Description Quantity Date Captured Comments Sex Female Smoking Status No Information Vital Signs Date / Time: Height Weight BMI Pulse Rate Blood Pressure Temperature Respiratory Rate Body Surface Area Head Circumference Head Circ. Percentile Wt./Chago. Percentile BMI percentile Pulse Ox Inhaled Ox 2:01 PM 59.00 in 83.915 kg (185.00 lbs) 37.3 7 kg/m eter (2) Chief Complaint And Reason For Visit No Information Reason For Referral Reason For Referral No Information Plan Of Treatment Date Type Action Status Future Order: Radiology Order AP /Lat/Flex/Ext Lumb (APLatFlExL), Ordered on: Ordered History Of Present Illness Encounter Date Complaint History Of Prese nt Illness No Information Functional Status Date Functional Assessmen t No Information Instructions Date Instruction Additional Infor mation No Information Assessments Type Assessment Date No Information Patient Care Teams Name Effective Dates (start - stop) Status Members No Information
--- NOTE | 2023-11-15 17:16 | ED.NURSE ---
Patient's daughter plans to picker and packer discharge instructions tomorrow. Her daughter works here at the hospital. Discharge instructions reviewed verbally.
--- NOTE | 2023-11-15 17:22 | ED.NURSE ---
Patient was given discharge packet, it was completed prior to discharge.
== END 2023-11-15 17:23 | disposition home or self-care (01) ==
PROVIDERS: Emergency Provider Emergency Medicine; PCP Internal Medicine
DX: S09.90XA Unspecified injury of head, initial encounter (principal); S00.83XA Contusion of other part of head, initial encounter; W01.10XA Fall on same level from slipping, tripping and stumbling with subsequent striking against unspecified object, initial encounter
CPT/HCPCS: 70450; 99284

== ENCOUNTER 2024-08-01 11:11 | Outpatient (CLI) | payer MEDICARE, BC, SELFPAY ==
--- OUTSIDE RECORDS SUMMARY | 2024-08-06 06:51 | XMS_ITS | Clinical Summary ---
Author Organization [email or web address] Address [place], [place] [address] Care Team Providers Care Marketing Operations Analyst Name Role Phone Dhaval Lopez DPM Unavailable Wander Ashton MD Unavailable [phone] Dragan Colbert MD Unavailable [phone] Wander Ashton MD Unavailable [phone] Dhaval Lopez DPM Unavailable Marcela Benoit MD Primary Care Provider [phone] Allergies Active Allergy Reactions Criticality Noted Date Comments Droperidol *Unknown 05/29/2019 Medications Medication Sig Dispensed Refills Start Date End Date Status calcium carbonate-vitamin D3, 500 mg-400 units, (OYSTER SHELL CALCIUM-VIT D3) tablet Take 1 tablet by mouth once daily. Active fish oil-omega-3 fatty acids (FISH OIL) 1,200-360 mg cap Take 1 capsule by mouth once daily. Active ascorbic acid, vitamin C, (VITAMIN C) 500 mg tablet Take 500 mg by mouth once daily. Active polyethylene glycoL (MIRALAX) 17 gram/dose powderIndications:Ch ronic constipation Take 17 g by mouth. 0 09/21/2017 Active acetaminophen (TYLENOL EXTRA STRGTH) 500 mg tablet Take 2 tablets by mouth every 4 hours if needed. Max acetaminophen dose: 4000mg in 24 hrs. 0 05/29/2019 Active loratadine (CLARITIN) 10 mg tabletIndications:Ch ronic serous otitis media of right ear Take 1 tablet by mouth once daily. 0 10/08/2019 Active B-D 3CC LUER-HEBERT SYR 25GX5/8 3 mL 25 x 5/8 03/04/2020 Active lisinopriL (PRINIVIL; ZESTRIL) 20 mg tabletIndications:Hy pertension TAKE 1 TABLET BY MOUTH ONCE DAILY. 90 tablet 1 12/05/2020 Active aspirin (ECOTRIN) 81 mg enteric coated tabletIndications:Ar terial ischemic stroke, vertebrobasilar, thalamic, acute, right (HC) Take 1 Tablet (81 mg) by mouth once daily with a meal. 0 04/09/2021 Active clopidogreL (PLAVIX) 75 mg tabletIndications:Ar terial ischemic stroke, vertebrobasilar, thalamic, acute, right (HC) Take 1 Tablet (75 mg) by mouth every morning. 90 Tablet 3 04/09/2021 Active pravastatin (PRAVACHOL) 20 mg tabletIndications:Mi xed hyperlipidemia TAKE ONE TABLET BY MOUTH AT BEDTIME 60 Tablet 08/06/2021 Active omeprazole (PRILOSEC) 20 mg Delayed-Release capsuleIndications:G astroesophageal reflux disease without esophagitis,Acute gastric ulcer with hemorrhage TAKE 1 CAPSULE BY MOUTH ONCE DAILY BEFORE A MEAL 90 Capsule 2 12/01/2021 Active cyanocobalamin (VITAMIN B12) 1,000 mcg/mL injectionIndications :Vitamin B12 deficiency INJECT 1 ML INTRAMUSCULAR EVERY 4 WEEKS. 3 mL 2 12/01/2021 Active amLODIPine (NORVASC) 5 mg tabletIndications:HT N (hypertension) TAKE ONE TABLET BY MOUTH ONCE DAILY 90 Tablet 2 12/01/2021 Active hydroCHLOROthiazide (HCTZ) 25 mg tabletIndications:Hy pertension TAKE 1 TABLET BY MOUTH ONCE DAILY. 30 Tablet 05/30/2022 Active Active Problems Problem Noted Date Diagnosed Date Nonrheumatic mitral valve regurgitation 04/09/20 21 Arterial ischemic stroke, ve rtebrobasilar, thalamic, acute, right 11/16/2020 Melanoma of left upper arm 06/11/2019 Melanoma in situ of face 06/11/2019 Squamous cell carcinoma 05/29/2019 Overview (05/29/2019): Scalp lesion removed 02/2018 Primary osteoarthritis of right knee 02/22/2017 Constipation 04/01/2016 Post herpetic neuralgia 02/12/2016 Primary osteoarthritis of left knee 02/12/2016 Gastric ulcer, acute 06/19/2015 Overview (11/11/2015): EGD 05/2015 gastric ulcer, repeat EGD in 4 months EGD 10/2015 healed ulcer Lumbar spinal stenosis 03/20/2015 DDD (degenerative disc disease), lumbar 10/25/20 14 Sacroiliitis 10/25/2014 Vitamin B12 deficiency 06/21/2013 GERD (gastroesophageal reflux disease) 3 Senile osteoporosis 01/13/2012 Paresthesias 04/07/2010 Carpal tunnel syndrome 02/12/2010 Personal history of colonic polyps 01/23/2010 Overview (06/19/2015): Colonoscopy 01/2010 diverticulosis repeat in 5 years Colonoscopy 05/2015 diverticulosis, no follow up needed Cervical Radiculopathy 01/16/2010 Degeneration of cervical intervertebral disc Iron deficiency anemia 01/02/2010 Unspecified transient cerebral ischemia 06/21/20 00 Mixed hyperlipidemia Unspecified menopausal and postmenopausal disord er Essential hypertension Diverticulitis of colon (without mention of hemo rrhage) Obesity, Class II, BMI 35-39.9, with comorbidity Resolved Problems Problem Noted Date Diagnosed Date Resolved Date Low back pain radiating to left leg 10/23/2009 03/20/2015 Overview (04/07/2011): 2008: MRI: DDD, and Multilevel central canal stenosis, greatest at L3-L4 where moderate canal stenosis. DENISSE: October 2009: L 4-5 Transforaminal, great improvement in left leg pain/symptoms. DENISSE: April 2010: left L4-5 Transforaminal. DENISSE: March 2011: left L4-5 Transforaminal. Osteopenia 01/01/2009 01/13/2012 Immunizations Name Administration Dates Next Due COVID-19 vaccine (TIP Imaging 30mcg/0.3mL) PF, MDV 01/20/2021,12/30/2020 Influenza, High-dose Inactivated 019,09/01/2016,09/10/2015,2013 Influenza, High-dose Quadriv alent Inactivated 09/10/2020 Influenza, IIV3 (Age >=3 years) 08/13/20 13,08/22/2012,08/03/2011,2009,08/21/2009,09/24/2008,09/27/2007 Influenza, Inactivated IIV3 (Age 65+ Years) Preserv Free 09/22/2018,09/21/2017 Pneumococcal Poly,23-Valent (Pneumovax) 09/24/2008 Pneumococcal conj 13-Valent (Prevnar 13) 03/11/2015 Td (Age >=7 Years) 04/24/1998 Td, Preservative Free (age > = 7 Years) 02/13/2008 Tdap 06/20/2012 Zoster (Shingrix-RZV, recombinant) 03/23/2019,,12/15/2018 Zoster (Zostavax-ZVL, live) 11/19/2008 Family History Medical History Relation Name Comments Cancer-breast Daughter Heart Disease Father [place] d 66 yo Cancer Mother pancreatic d 76 yo Diabetes Mother Hypertension Mother Good Health Sister 1 Good Health Sister 2 Relation Name Status Comments Daughter Father Mother Sister 1 Sister 2 Social History Tobacco Use Types Packs/Day Years Used Date Smoking Tobacco: Never Smokeless Tobacco: Never Tobacco Cessation:Counseling Given: Yes Alcohol Use Standard Drinks/Week Comments No 0 (1 standard drink = 0.6 oz pur e alcohol) PHQ-2 Answer Date Recorded PHQ-2 TOTAL SCORE 0 02/03/2021 Social Connections Answer Date Recorded Frequency of Communication with Friends and Fami ly Not on file 06/06/2023 Financial Resource Strain Answer Date R ecorded Difficulty of Paying Living Expenses Not on file 11/21/2021 Difficulty of Paying Living Expenses Not on file 11/21/2021 Sex and Gender Information Value Date Recorded Sex Assigned at Not on file Gender Identity Not on file Sexual Orientation Not on file Obstetrics History Para Term AB IAB SAB Ectopic Multiple Livin g Live Births 3 3 3 0 0 0 0 0 3 Date Outcome GA Total Labor Labor/2nd/3rd Weight Sex Type Anes PTL Gabriela A1 A5 Name Clin Term Term Term Comments x3 Last Filed Vital Signs Vital Sign Reading Time Taken Comments Blood Pressure 134/70 04/09/2021 3:31 PM CDT Pulse 84 04/09/2021 3:19 PM CDT Temperature 36.6 ??C (97.9 ??F) 01/01/2020 6:02 PM CS T Respiratory Rate 20 12/12/2019 11:18 AM USABILITY SPECIALIST Oxygen Saturation 99% 04/09/2021 3:19 PM CDT Inhaled Oxygen Concentration - - Weight 77.7 kg (171 lb 3.2 oz) 04/09/2021 3:19 P M CDT Height 151.1 cm (4' 11.5) 02/03/2021 1:05 PM CD T Body Mass Index 34 02/03/2021 1:05 PM CDT Plan of Treatment Health Maintenance Due Date Last Done Comments RSV vaccine for adults or (1 - 1-dose 60+ series) 1995 BMI (ht and wt on same day) for age 18+ 02/03/2022 02/03/2021, 10/08/2019, 05/29/2019, Additional history exists Depression screening for age 12+ 02/03/2022 02/03/2021, 11/25/2020, 06/18/2020, Additional history exists Medicare Wellness for age 65+ 02/04/2022, 05/29/2019, 05/18/2018, Additional history exists Tetanus booster 06/20/2022 06/20/2012, 01/20, 04/24/1998 COVID-19 vaccine series ( season) 2024 01/20/2021, 12/30/2020 Influenza for age 65+ 07/22/2024 09/10/2020 , 09/05/2019, 09/22/2018, Additional history exists DEXA/DXA scan for age 65+ Completed 01/06/2012, 10/2009 Tdap Completed 06/20/2012 Pneumococcal series for age 65+ Completed 5, 09/24/2008 Zoster (shingles) series for age 50+ Completed 03/23/2019, 02/21/2019, 12/15/2018, Additional history exists Medical Devices Implanted Type Area Drill Rig Operator Helper Device Identifier Shelf Expiration Date Model / Serial / Lot Cmnt Bone 40g Simplex P Atb Mvtobramycin - [id number] Implanted:Qty: 2 on 02/27/2016 by Wander Nice MD at [facility] [place] Left: Knee [employer] 6197-9-010 # / / [id number] Fem Lt Sz3 Triathlon Cruc Ret Co Cr - [id number] Implanted:Qty: 1 on 02/27/2016 by Wander Nice MD at [facility] Left: Knee [employer] 5510-F-301 # / / [id number] Patella [id number] Triathlon Symmetric X3 - [id number] Implanted:Qty: 1 on 02/27/2016 by Wander Nice MD at [facility] Left: Knee [employer] 5550-G-360 # / / [id number] Baseplate Tib Sz4 Triathlon Pe - [id number] Implanted:Qty: 1 on 02/27/2016 by Wander Nice MD at [facility] Left: Knee [employer] 5521-B-400 # / / [id number] Insert Knee Sz4 9mm Triathloncruc Ret X3 - [id number] Implanted:Qty: 1 on 02/27/2016 by Wander Nice MD at [facility] Left: Knee [employer] 5530-G-409 # / / [id number] Baseplate Tib Sz4 Triathlon Pe - [id number] Implanted:Qty: 1 on 03/04/2017 by Wander Nice MD at [facility] Right: Knee [employer] 09/27/2021 5521-B-400 # / / [id number] Fem Rt Sz3 Triathlon Cruc Ret Co Cr - [id number] Implanted:Qty: 1 on 03/04/2017 by Wander Nice MD at [facility] Right: Knee [employer] 11/30/2021 5510-F-302 # / / [id number] Insert Knee Sz4 11mm Triathloncruc Ret X3 - [id number] Implanted:Qty: 1 on 03/04/2017 by Wander Nice MD at [facility] Right: Knee [employer] 12/06/2021 5530-G-411 # / / [id number] Cmnt Bone 40g Simplex P Atb Mvtobramycin - [id number] Implanted:Qty: 1 on 03/04/2017 by Wander Nice MD at [facility] Right: Knee [employer] 07/21/2018 6197-9-010 # / / [id number] Cmnt Bone 40g Simplex P Atb Mvtobramycin - [id number] Implanted:Qty: 1 on 03/04/2017 by Wander Nice MD at [facility] Right: Knee [employer] 07/21/2018 6197-9-010 # / / [id number] Patella [id number] Triathlon Symmetric X3 - [id number] Implanted:Qty: 1 on 03/04/2017 by Wander Nice MD at [facility] Right: Knee [employer] 11/03/2021 5550-G-360 # / / [id number] Procedures Procedure Name Priority Date/Time Associated Diagnosis Comments XR DXA BONE DENSITY 2 SITES AXIAL Routine 01/06/2012 11:32 AM USABILITY SPECIALIST Osteopenia from Last 3 Months or Most Recently Relevant to Health Maintenance Results * XR DEXA BONE DENSITY 2 SITES (01/06/2012 11:32 AM USABILITY SPECIALIST) Anatomical Region Laterality Modality Spine, HIPS, HIPL, HIPR Other Narrative 01/12/2012 5:23 PM USABILITY SPECIALIST Please see scanned document for results of this study. Procedure Note Venita Sarkar PA - 01/12/2012 Please see scanned document for results of this study. Pedro Luis Orellana MD DEXA from Last 3 Months or Most Recently Relevant to Health Maintenance Advance Directives * Full Code (Latest Code Status on File) Date Activated Date Inactivated Comments 03/04/2017 3:26 PM 03/07/2017 3:57 PM * Full Code Date Activated Date Inactivated Comments 03/04/2017 7:48 AM 03/04/2017 3:25 PM * Full Code Date Activated Date Inactivated Comments 02/27/2016 1:44 PM 03/01/2016 2:03 PM * Full Code Date Activated Date Inactivated Comments 02/27/2016 6:44 AM 02/27/2016 1:44 PM Care Teams Marketing Operations Analyst Relationship Specialty Start Date End Date Marcela Benoit MD [address] [place] [address] PCP - General Internal Medicine 06/01/22 Dhaval Lopez DPM PODIATRY Podiatry 01/06/12 Wander Ashton MD [address] [place] [address] Sports Medicine 01/06/12 Dragan Colbert MD [address] [place] [address] Family Practice 01/06/12 Wander Ashton MD [address] [facility] [place] [address] Sports Medicine 03/16/13 Dhaval Lopez DPM Podiatry 03/16/13
--- OUTSIDE RECORDS SUMMARY | 2024-08-06 06:51 | XMS_ITS | Continuity of Care Document ---
Author Organization [facility] Address [address] [place] [address] Phone Care Team Providers Care [place] Trap Name Role Phone Angel Shen MD Unavailable Unavailable Procedures Procedure Date Office/Outpatient Visit,[facility], [facility] 2022 Office/outpatient visit,[facility] [place] 2009 Advance Directives Directive Yes / No Effective Date File Name No Information Encounters Encounter Description Practice Location Reason(s) For Visit Diagnoses Date Provider Providers Copied on Encounter Office/Outpat ient Visit,[facility], [facility], [address], [place], [place], [id number], tel:[phone] Spinal stenosis, lumbosacral regionOther forms of scoliosis, site unspecifiedS pondylolysis , site unspecified 3 Hermelinda Ortiz. [facility], [address], [facility] [address], [place], [id number] , [place]. tel:[phone] Referring Provider: Angel Delgado, [facility] [address], [place] [address], [place], [address] . tel:[phone] [facility], [address], [place], [place], [id number], [place] tel:[phone] [facility] Spinal stenosis, lumbosacral region Jul- 3 Hermelinda Ortiz. [facility], [address], [address], [place], [place], [id number] , [place]. tel:[phone] Office/outpat ient visit,new, mod Z [facility], [address], [place], [address], [place] tel:[phone] [facility] [place] No Information 4-201 0 Fan Dozier. [facility], [address] [place] [address], [address], [place], [place], [id number] , [place]. tel:[phone] Referring Provider: Pedro Luis Forte, [address], [place], [address]. tel:[phone] Family History Family Member Type Diagnosis Age At Onset No Information Payers Payer name Insurance type Covered alliance party ID Authoriza [email or web address](s) Medicare MB [id number] [facility] [id number] [facility] [place] [id number] Social History Type Description Quantity Date Captured [...]
== END 2024-08-01 11:12 | disposition home or self-care (01) ==
LOC: NFLDREF 08-06 06:50
PROVIDERS: PCP Internal Medicine; Referring Provider Internal Medicine; Visit Provider Internal Medicine
DX: E78.5 Hyperlipidemia, unspecified (principal); I10 Essential (primary) hypertension; Z86.73 Personal history of transient ischemic attack (TIA), and cerebral infarction without residual deficits
CPT/HCPCS: 80048; 80061

== ENCOUNTER 2025-08-15 14:36 | Outpatient (CLI) | payer MEDICARE, BC, SELFPAY | END 2025-08-15 14:37 | disposition home or self-care (01) | LOC: NFLDREF 08-19 07:13 | PROVIDERS: PCP Internal Medicine; Referring Provider Internal Medicine; Visit Provider Internal Medicine | DX: Z86.73 Personal history of transient ischemic attack (TIA), and cerebral infarction without residual deficits (principal); I10 Essential (primary) hypertension | CPT/HCPCS: 80048; 80061; 82607 ==

== ENCOUNTER 2025-09-04 13:57 | Outpatient (CLI) | payer MEDICARE, BC, SELFPAY | END 2025-09-04 13:58 | disposition home or self-care (01) | LOC: RAD 13:58 | PROVIDERS: PCP Internal Medicine; Visit Provider Internal Medicine | DX: I44.2 Atrioventricular block, complete (principal); I51.7 Cardiomegaly; I35.2 Nonrheumatic aortic (valve) stenosis with insufficiency; I34.0 Nonrheumatic mitral (valve) insufficiency; I07.1 Rheumatic tricuspid insufficiency | CPT/HCPCS: 93306 ==